=== PATIENT | female | born 1960 | race Caucasian/White ===

== ENCOUNTER → 2023-04-23 14:23 | Outpatient (BNVA) | payer MEDICAID, SELFPAY | PROVIDERS: PCP Family Medicine; Visit Provider Nurse Practitioner Family | DX: I96 Gangrene, not elsewhere classified (principal); L97.312 Non-pressure chronic ulcer of right ankle with fat layer exposed | CPT/HCPCS: 11042; 99213; A6210; A6212 ==

== ENCOUNTER 2023-05-10 13:18 | Outpatient (CLI) | payer MEDICAID, SELFPAY ==
--- NOTE | 2023-05-10 13:00 | USCV_ITS ---
Luanne Dempsey Age: 62 Gender: F : 1960 Exam Date: 05/10/2023 13:51 Ordering Phys: Amy Brown NP Technologist: Saulo Yepez [place] [facility] [place]: [place]ORY: PROCEDURES: FINDINGS: There is no evidence of bilateral deep vein thrombosis. No evidence of superficial thrombosis in the bilateral saphenous system. No evidence of reflux was noted in the bilateral deep venous system. No venous reflux noted in the bilateral greater saphenous vein. No venous reflux noted in the bilateral small saphenous vein. CONCLUSIONS No evidence of DVT in the above-mentioned identifiable veins. No significant reflux either in the deep or in the superficial veins, as identified as above. Dr Aida Velez MD [facility] (Electronically Signed) Final Date: 11 May 2023 12:37 S
--- NOTE | 2023-05-10 14:15 | USCV_ITS ---
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 Dr Aida Velez MD [facility] (Electronically Signed) Final Date: 11 May 2023 12:40 S
== END 2023-05-10 13:19 | disposition home or self-care (01) ==
LOC: RAD 13:19
PROVIDERS: PCP Family Medicine; Visit Provider Nurse Practitioner Family
DX: S81.801A Unspecified open wound, right lower leg, initial encounter (principal); X58.XXXA Exposure to other specified factors, initial encounter
CPT/HCPCS: 93922; 93970

== ENCOUNTER → 2023-05-14 14:14 | Outpatient (BNVA) | payer MEDICAID, SELFPAY | PROVIDERS: PCP Family Medicine; Visit Provider Nurse Practitioner Family | DX: I96 Gangrene, not elsewhere classified (principal); L97.312 Non-pressure chronic ulcer of right ankle with fat layer exposed | CPT/HCPCS: 97597; A6210; A6219 ==